=== PATIENT | male | born 1975 | race Caucasian/White ===

== ENCOUNTER 2024-03-13 22:52 | Emergency (ER) | payer OTHER ==
[2024-03-13] MEDS ORDERED: Sodium Chloride 0.9% 10 ML Syringe FLUSH PRN (22:57)
[2024-03-13 23:05] LABS: BASOPHILS ABSOLUTE AUTO 0.06 K/uL (0.00-0.20); BASOPHILS PERCENT AUTO 0.6 % (0.0-2.0); EOSINOPHILS PERCENT AUTO 2.9 % (0.0-5.0); HEMATOCRIT 41.6 % (39.0-49.0); HEMOGLOBIN 14.3 g/dL (13.1-16.8); LYMPHOCYTES ABSOLUTE AUTO 1.78 K/uL (0.50-3.50); MEAN CORPUSCULAR HEMOGLOBIN 32.4 pg (28.2-33.3); MEAN CORPUSCULAR HGB CONC 34.4 g/dL (31.7-36.0); MEAN CORPUSCULAR VOLUME 94.1 fL (84.0-98.0); MONOCYTES ABSOLUTE AUTO 1.05 K/uL (0.00-1.00); NEUTROPHILS ABSOLUTE AUTO 7.31 K/uL (1.40-7.00); NEUTROPHILS PERCENT AUTO 69.5 % (45.0-80.0); PLATELET COUNT,PLT 185 K/uL (150-350); RED BLOOD CELL COUNT 4.42 M/uL (4.33-5.41); RED CELL DISTRIBUTION WIDTH 13.3 % (11.2-14.1); WHITE BLOOD CELL COUNT,WBC 10.5 K/uL (4.0-10.2)
[2024-03-13] MEDS: Aspirin 81 MG Tab.Chew ONE (23:08)
[2024-03-13] MEDS: Aspirin 81 MG Tab.Chew PO ONE (23:08)
[2024-03-13] MEDS: Nitroglycerin 0.4 MG Tab.SL SL PRN (23:24)
[2024-03-13 23:27] LABS: PROTHROMBIN TIME 10.3 SEC (9.0-11.1)
[2024-03-13 23:29] LABS: ALANINE AMINOTRANSFERASE,ALT 63 U/L (12-78); ALBUMIN 4.2 g/dL (3.4-5.0); ALKALINE PHOSPHATASE 87 IU/L (46-116); ASPARTATE AMNIOTRANSFERASE,AST 28 U/L (15-37); BILIRUBIN TOTAL 0.6 mg/dL (0.2-1.0); BLOOD UREA NITROGEN,BUN 22 mg/dL (7-18); CALCIUM 8.6 mg/dL (8.5-10.1); CARBON DIOXIDE,CO2 27.2 mmol/L (21.0-32.0); CHLORIDE,CL 97 mmol/L (98-107); CREATININE 1.37 mg/dL (0.51-1.17); GLUCOSE RANDOM 145 mg/dL (70-99); LIPASE 47 U/L (16-77); MAGNESIUM 2.1 mg/dL (1.8-2.4); POTASSIUM,K 3.6 mmol/L (3.5-5.1); PRO B-TYPE NATRIUR PEPT,BNPPRO 17 pg/mL (0-125); PROTEIN TOTAL,TP 7.5 g/dL (6.4-8.2); SODIUM,NA 135 mmol/L (136-145)
[2024-03-13 23:31] LABS: ANION GAP 14.4 meq/L (7-15); ESTIMATED GFR 64 mL/min (>=60); ETHANOL BLOOD MEDICAL < 0.000 g/dL (0.000-0.080)
[2024-03-14] MEDS: Enoxaparin 100 MG/1 ML Syringe SUBCUT ONE (00:14)
== END 2024-03-14 00:50 ==
LOC: LL.ED 22:52
DX: I42.2 Other hypertrophic cardiomyopathy (principal); R55 Syncope and collapse; Z88.8 Allergy status to other drugs, medicaments and biological substances
CPT/HCPCS: 36415; 80053; 80307; 83690; 83735; 83880; 84484; 85025; 85610; 93005; 96372; 99285; A9270; J1650

== ENCOUNTER 2024-03-21 12:10 | Emergency (ER) | payer OTHER ==
[2024-03-21] MEDS ORDERED: Nitroglycerin 0.4 MG Tab.SL SL PRN (12:32)
[2024-03-21 12:44] LABS: BASOPHILS ABSOLUTE AUTO 0.04 K/uL (0.00-0.20); BASOPHILS PERCENT AUTO 0.4 % (0.0-2.0); EOSINOPHILS ABSOLUTE AUTO 0.31 K/uL (0.00-0.50); EOSINOPHILS PERCENT AUTO 3.3 % (0.0-5.0); HEMATOCRIT 44.9 % (39.0-49.0); HEMOGLOBIN 15.7 g/dL (13.1-16.8); LYMPHOCYTES PERCENT AUTO 19.4 % (10.0-50.0); MEAN CORPUSCULAR HEMOGLOBIN 32.8 pg (28.2-33.3); MEAN CORPUSCULAR VOLUME 93.7 fL (84.0-98.0); MONOCYTES ABSOLUTE AUTO 0.63 K/uL (0.00-1.00); MONOCYTES PERCENT AUTO 6.8 % (2.0-14.0); NEUTROPHILS ABSOLUTE AUTO 6.49 K/uL (1.40-7.00); NEUTROPHILS PERCENT AUTO 70.1 % (45.0-80.0); PLATELET COUNT,PLT 181 K/uL (150-350); RED BLOOD CELL COUNT 4.79 M/uL (4.33-5.41); RED CELL DISTRIBUTION WIDTH 13.1 % (11.2-14.1); WHITE BLOOD CELL COUNT,WBC 9.3 K/uL (4.0-10.2)
[2024-03-21] MEDS: Aspirin 81 MG Tab.Chew PO ONE ×2 (12:46)
[2024-03-21 12:57] LABS: APPEARANCE,URINE CLEAR; BILIRUBIN,URINE NEGATIVE (NEGATIVE); COLOR,URINE YELLOW; GLUCOSE,URINE 500 mg/dL (NEGATIVE); KETONES,URINE NEGATIVE (NEGATIVE); LEUKOCYTE ESTERASE,URINE NEGATIVE (NEGATIVE); NITRITE,URINE NEGATIVE (NEGATIVE); OCCULT BLOOD,URINE NEGATIVE (NEGATIVE); PROTEIN,URINE NEGATIVE (NEGATIVE); UROBILINOGEN,URINE 0.2 E.U./dL (0.2-1.0)
[2024-03-21 13:02] LABS: ANION GAP 10.5 meq/L (7-15); BILIRUBIN TOTAL 0.4 mg/dL (0.2-1.0); C-REACTIVE PROTEIN 0.2 mg/dL (0.05-0.30); CALCIUM 8.5 mg/dL (8.5-10.1); CARBON DIOXIDE,CO2 27.5 mmol/L (21.0-32.0); CREATININE 1.26 mg/dL (0.51-1.17); EST CRCL DRUG DOSING (CG) 74.03 mL/min; MAGNESIUM 1.9 mg/dL (1.8-2.4); POTASSIUM,K 3.6 mmol/L (3.5-5.1); PROTEIN TOTAL,TP 7.2 g/dL (6.4-8.2)
[2024-03-21 13:30] LABS: INR 0.9 (0.9-1.1); PROTHROMBIN TIME 9.4 SEC (9.0-11.1); PTT,PARTIAL THROMBOPLSTIN TIME 29.8 SEC (23.6-29.8)
[2024-03-21] MEDS: Ondansetron 4 MG Tab.DIS PO ONE (13:37)
[2024-03-21] MEDS: Thiamine 100 MG Tab PO ONE (14:02)
[2024-03-21] MEDS: Thiamine 100 MG in Sodium Chloride 0.9% 100 ML IV ONE (14:32)
[2024-03-21] MEDS: Sodium Chloride 0.9% 10 ML Syringe FLUSH PRN (14:33)
== END 2024-03-21 15:42 | disposition home or self-care (01) ==
LOC: LL.ED 12:10
DX: R07.89 Other chest pain (principal); R25.1 Tremor, unspecified; R41.3 Other amnesia; I25.2 Old myocardial infarction; Z79.82 Long term (current) use of aspirin; Z79.84 Long term (current) use of oral hypoglycemic drugs; Z79.899 Other long term (current) drug therapy; Z88.8 Allergy status to other drugs, medicaments and biological substances
CPT/HCPCS: 36415; 71045; 80053; 81003; 83605; 83690; 83735; 84425; 84484; 85025; 85610; 85730; 86140; 93005; 96365; 99285-25; A9270-GY; J3411; J3490